=== PATIENT | male | born 1955 | race Caucasian/White ===

== ENCOUNTER → 2016-02-20 | Outpatient (CLI) | payer OTHER ==
--- NOTE | 2016-02-20 19:41 | DX ---
Lumbar Spine, Two Views February 20, 2016 Indication: Six weeks following posterior fusion. Technique: Upright AP and lateral views. Comparison: Two-view lumbar spine dated January 08, 2016. Findings: The bilateral posterior L4-L5 fusion construct remains well seated. No perihardware fractur e or lucency has developed. The construct consists of dual posterior rods, bilateral pedicle screws i n L4-L5, and radiopaque device in the L4-L5 interbody space. The 4 mm retrolisthesis of L4 on L5, 2 m m of anterolisthesis of L3 on L4, and old minimal compression deformity of the superior endplate of L 1 are all unchanged. The surgical drain has been removed. Mild levocurvature apex at L3 is slightly m ore pronounced with a Brooks angle of 10 degrees. Impression: Well-seated posterior fusion construct at L4-L5.
== END ==
LOC: CIMAGING 13:40
PROVIDERS: ATTEND Neurological Surgery
DX: M43.16 Spondylolisthesis, lumbar region (principal); M48.06 Spinal stenosis, lumbar region; Z98.1 Arthrodesis status
CPT/HCPCS: 72100-PO

== ENCOUNTER → 2016-04-01 | Outpatient (CLI) | payer OTHER | LOC: CIMAGING 13:00 | PROVIDERS: ATTEND Physician Assistant Surgical | DX: Z98.1 Arthrodesis status (principal); S32.010D Wedge compression fracture of first lumbar vertebra, subsequent encounter for fracture with routine healing | CPT/HCPCS: 72100-PO ==

== ENCOUNTER → 2016-06-30 | Outpatient (CLI) | payer OTHER | LOC: CIMAGING 15:21 | PROVIDERS: ATTEND Neurological Surgery | DX: M51.86 Other intervertebral disc disorders, lumbar region (principal); Z98.1 Arthrodesis status | CPT/HCPCS: 72100-PO ==

== ENCOUNTER → 2016-12-25 | Outpatient (CLI) | payer OTHER | LOC: CIMAGING 14:16 | PROVIDERS: ATTEND Neurological Surgery | DX: Z09 Encounter for follow-up examination after completed treatment for conditions other than malignant neoplasm (principal); Z98.1 Arthrodesis status | CPT/HCPCS: 72100-PO ==